=== PATIENT | male | born 1970 | race Two or more races ===

== ENCOUNTER → 2025-07-02 | Outpatient (CLI) | payer MEDICAID, SELFPAY ==
--- NOTE | 2025-07-02 16:11 | XR_ITS ---
Examination: Hand, right 3 views Technique: Hand AP, oblique, lateral 3 views Date and time of exam: July 02, 2025, 1614 hours INDICATIONS: Right hand pain beginning 2 years ago. FINDINGS: Mild juxta-articular bone demineralization. Mild osteoarthritis radiocarpal, first carpometacarpal, metacarpal phalangeal and interphalangeal joints No erosive arthritis No fractures IMPRESSION: Osteoarthritis as above
--- NOTE | 2025-07-02 16:12 | XR_ITS ---
Examination: Wrist, right 3 views Technique: Wrist AP, oblique, lateral 3 views Date and time of exam: July 02, 2025 1619 hours INDICATIONS: Right hand wrist pain beginning 2 years ago. FINDINGS: Moderate osteoarthritis radiocarpal joint Mild to moderate osteoarthritis first carpometacarpal joint No fracture or dislocation. No avascular necrosis IMPRESSION: Osteoarthritis as above
== END | disposition home or self-care (01) ==
PROVIDERS: PCP Physician Assistant; Referring Provider Nurse Practitioner Gerontology; Visit Provider Nurse Practitioner Gerontology
DX: M18.11 Unilateral primary osteoarthritis of first carpometacarpal joint, right hand (principal); M19.041 Primary osteoarthritis, right hand
CPT/HCPCS: 73110; 73130